=== PATIENT | female | born 1990 | race Caucasian/White ===

== ENCOUNTER 2018-05-02 09:38 | Emergency (ER) | payer OTHER, SELFPAY ==
[2018-05-02 09:47] VITALS: BP 169/74; PULSE 61; RESP 20; TEMP 36.6; O2SAT 100; BMI 22.0
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
[2018-05-02 12:20] VITALS: BP 126/74; PULSE 63; RESP 16; O2SAT 100
== END 2018-05-02 12:20 | disposition home or self-care (01) ==
PROVIDERS: Emergency Provider Emergency Medicine
DX: S06.0X0A Concussion without loss of consciousness, initial encounter (principal); W22.8XXA Striking against or struck by other objects, initial encounter
CPT/HCPCS: 99282; 99291

== ENCOUNTER → 2020-12-02 13:14 | Outpatient (CLI) | payer OTHER, SELFPAY ==
[2020-12-02 13:47] LABS: COVID19 -Nasal RAPID Negative (Negative)
== END ==
PROVIDERS: Visit Provider Physician Assistant
DX: Z20.822 Contact with and (suspected) exposure to COVID-19 (principal); R05 Cough; R09.89 Other specified symptoms and signs involving the circulatory and respiratory systems
CPT/HCPCS: 87635